=== PATIENT | male | born 1990 | race Caucasian/White ===

== ENCOUNTER 2017-04-01 10:11 | Emergency (ER) | payer OTHER ==
[2017-04-01 10:19] VITALS: BP 142/86
--- NOTE | 2017-04-01 10:40 | UC ---
Respiratory Complaint HPI - HPI Summary HPI Summary: TWO DAYS OF COUGH, CONGESTION, WHEEZING. NO FEVER. NO HISTORY OF ASTHMA. PATIENT REFUSES TO HAVE CHEST XRAY AND DUONEB TREATMENT AND IN-HOUSE TESTING DUE TO CONCERN FOR COST. - History of Current Complaint Chief Complaint: UCRespiratory Stated Complaint: HEAD/CHEST CONGESTION Time Seen by Provider: 04/01/17 10:16 Hx Obtained From: Patient, Family/Strategic Planning Analyst Onset/Duration: Gradual Onset, Lasting Days Severity Initially: Mild Severity Currently: Moderate Character: Cough: Nonproductive Associated Signs And Symptoms: Positive: Wheezing, URI, Nasal Congestion. Negative: Fever, Chills, Pleuritic Chest Pain, Calf Pain, Calf Swelling - Allergies/Home Medications Allergies/Adverse Reactions: Allergies Allergy/AdvReac Type Severity Reaction Status Date / Time No Known Allergies Allergy Verified 04/01/17 10:16 PMH/Surg Hx/FS Hx/Imm Hx Previously Healthy: Yes - Surgical History Surgical History: None - Family History Known Family History: Negative: Respiratory Disease - Social History Occupation: Employed Full-time Lives: With Family Alcohol Use: None Substance Use Type: None Smoking Status (MU): Light Every Day Tobacco Smoker Review of Systems Constitutional: Negative Skin: Negative Eyes: Negative ENT: Nasal Discharge, Sinus Congestion, Sinus Pain/Tenderness Respiratory: Cough Cardiovascular: Negative Gastrointestinal: Negative Genitourinary: Negative Motor: Negative Neurovascular: Negative Musculoskeletal: Negative Neurological: Negative Psychological: Negative Is Patient Immunocompromised?: No All Other Systems Reviewed And Are Negative: Yes Physical Exam Triage Information Reviewed: Yes Appearance: No Pain Distress, Well-Nourished, Ill-Appearing - MILDLY Vital Signs: Initial Vital Signs Temp 97.9 F 04/01/17 10:16 Pulse 83 04/01/17 10:16 Resp 16 04/01/17 10:16 BP 142/86 04/01/17 10:16 Pulse Ox 98 04/01/17 10:16 Vital Signs Reviewed: Yes Eye Exam: Normal ENT: Positive: Pharynx normal, TM dull Dental Exam: Normal Neck exam: Normal Neck: Positive: Supple, Nontender, No Lymphadenopathy Respiratory: Positive: Chest non-tender, Normal breath sounds, No respiratory distress, No accessory muscle use, Wheezing Cardiovascular Exam: Normal Cardiovascular: Positive: RRR, No Murmur, Pulses Normal Abdominal Exam: Normal Abdomen Description: Positive: Nontender Musculoskeletal Exam: Normal Neurological Exam: Normal Psychological Exam: Normal Skin Exam: Normal UC Diagnostic Evaluation - Laboratory O2 Sat by Pulse Oximetry: 98 Respiratory Course/Dx - Differential Dx/Diagnosis Differential Diagnosis/HQI/PQRI: Bronchitis, Influenza, Sinusitis Provider Diagnoses: SINUSITIS; BRONCHITIS WITH BRONCHOSPASM Discharge - Discharge Plan Condition: Stable Disposition: HOME Prescriptions: Albuterol HFA INHALER* [Ventolin HFA Inhaler*] 1 - 2 puff INH Q4H PRN #1 mdi PRN Reason: Wheezing Azithromycin TAB* [Zithromax TAB (Z-SHALONDA) 250 mg #6 tabs] 250 mg PO DAILY #6 tab Patient Education Materials: Acute Bronchitis (ED), Bronchospasm (ED)
== END 2017-04-01 10:42 | disposition home or self-care (01) ==
LOC: UCEAST 10:11
DX: J32.9 Chronic sinusitis, unspecified (principal); J20.9 Acute bronchitis, unspecified; F17.210 Nicotine dependence, cigarettes, uncomplicated
CPT/HCPCS: 99202; G0463